=== PATIENT | male | born 2000 | race Two or more races ===

== ENCOUNTER 2024-12-23 18:36 | Emergency (ER) | payer OTHER ==
[~2024-12-23] VITALS: Ht 182.9 cm; Wt 86.4 kg
--- NOTE | 2024-12-23 19:32 | ED.PDOC ---
Back pain HPI HPI Comments Poor Historian. Pt stated that he was at work getting out of a van when he twisted his left ankle at 1400 today. An on sight doctor wrapped the ankle up and informed the pt to do the ice treatment, as well as giving the pt 2 200mg of ibuprofen for the pain. Pt reports a 08/04 pain Patient denies any other injuries or pain. PMHx: Denies any PSHx: Denies any REVIEW OF SYSTEMS: CONSTITUTIONAL: Denies acute: fever, diaphoresis, chills, generalized weakness. HEAD: Denies acute: headache, photophobia Eyes: Denies acute: Double vision, vision loss, eye pain, eye discharge. EARS: Denies acute: tinnitus, hearing loss, ear discharge, ear pain, THROAT: Denies acute: sore throat, swelling, difficulty swallowing , pain with swallowing, change in voice. NECK: Denies acute: neck pain, neck swelling, stiff neck. HEART: Denies acute : chest pain, palpitations, LUNGS: Denies acute: SOB, wheezing, cough, hemoptysis ABDOMEN: Denies acute: abdominal pain, Nausea, Vomiting, diarrhea, melena , hematemesis, hematochezia SKIN: Denies acute: rash, redness, lesions, itchiness. EXTREMITIES: Denies acute: calf pain, numbness, tingling, weakness, Denies acute: Low back pain. Neuro: Denies acute: focal neurological deficit, motor or sensory focal neurological deficit, tremors, seizure like activity, confusion, dizziness, change in mental status, loss of bowel or bladder function, cauda equina like symptoms. : Denies acute: dysuria, hematuria, flank pain, increase in urinary frequency. PSYCH: Denies acute: hallucination, suicidal ideation, homicidal ideation. PHYSICAL EXAM: General: no acute distress, awake and alert. Head: normocephalic, atraumatic. Neck: supple, trachea is midline, no swelling. Throat: Normal phonation. Eyes:, no erythema, no purulent discharge, no proptosis, no icterus. Heart: regular rate, regular rhythm, no significant murmur appreciated. Lungs: no apparent respiratory distress, Able to speak in full sentences. No wheezing, no rhonchi, no crackles. No stridors Clear to auscultation bilaterally. Abdomen: non tender to palpation, non distended, soft, no guarding, no rebound, + bowel sounds. Neuro: Awake, Alert, oriented to name, self, situation, follows commands GCS=15. Speech is normal. Skin: no petechia, no purpura, no cyanosis, non-pale, not jaundice. Lower extremities: --no - Pitting edema no deformity, no calf TTP. Evaluation of the left ankle where his area of pain is: Noted left lateral malleoli swelling and tenderness to palpation. Patient is neurovascularly intact in the affected extremity. Pedal pulses palpable. Sensory and motor are present. Makes eye contact. moves all four extremities. Face: no apparent facial droop. ED COURSE: Chief Complaint: Lower Extremity Time Seen by MD: 19:25 Reviewed Notes: Nurses Notes, Medications, Allergies Allergies: Coded Allergies: NO KNOWN ALLERGIES (Unverified , 12/23/24) Information Source: Patient Mode of Arrival: Wheelchair Timing: Hours Duration: Since onset, Hours Radiates to: Lateral: (L) Foot Severity: Moderate Prehospital treatment: None Quality: Aching Onset: Spontaneous, Bending Circumstance: Other (getting out of a vehicle) Associated signs and symptoms: Weakness:(L) Foot Past Medical History PAST MEDICAL HISTORY: Denies Surgical History: Denies all surgeries Family History Family History: Reviewed,noncontributory to illness, Unknown Social History Smoker: Non-Smoker Alcohol: Denies ETOH Use Drugs: Denies Drug Use Lives In: Home Was a procedure done? Was a procedure done?: No Back Pain Differential Dx Differential Diagnosis: Musculoskeletal Pain Other Differential Diagnosis Dislocation, fracture, sprain, strain, septic joint, compartment syndrome, neurovascular injury. X-Ray, Labs, Meds, VS Vital Signs Date Time Temp Pulse Resp B/P (MAP) Pulse Ox O2 Delivery O2 Flow Rate FiO2 12/23/24 22:40 98.6 69 18 136/73 (94) 97 98.6 12/23/24 22:40 69 18 97 Room Air* 0 21 12/23/24 19:25 99.0 85 18 143/59 (87) 98 Current Medications Medications (Trade) Dose Ordered Sig/Flor Route Start Time Stop Time Status Last Admin Acetaminophen/ Hydrocodone Bitart ([place] 5/325MG Tab) 1 tab ONCE ONCE PO 12/23/24 19:30 12/23/24 19:31 DC 12/23/24 22:[address] [address] Ph: [phone] DIAGNOSTIC IMAGING Diagnostic Imaging Report : [id number] Signed PATIENT: JESSICA GODFREY ACCT: [id number] UNIT: [id number] : 2000 LOC: ER ROOM / BED: / AGE / SEX: 24 / M ADM STATUS: REG ER SERVICE 24 ORDERING PHYSICIAN: FLAVIA MOSER DO PROCEDURE(s): LANKL - L ANKLE 3 VIEW REASON: pain injury swelling ORDER NUMBER(s): [id number], ACCESSION NUMBER(s): [id number] CLINICAL INDICATION: pain injury swelling TECHNIQUE: 3 radiographic views of the left ankle were obtained. Comparison: None FINDINGS/IMPRESSION: There is no evidence of acute fracture or dislocation. The visualized joint space is well maintained. The alignment is anatomical. There is no radiopaque foreign body. HS:Y ATED BY: THIAGO SPANN Jr., DO DICTATED DATE/TIME: 12/23/242017 SIGNED BY: THIAGO SPANN Jr., DO SIGNED DATE/TIME: 12/23/242017 CC: Time of 1ST Reevaluation: 19:55 Reevaluation 1ST: Unchanged Patient Education/Counseling: Diagnosis, Treatment Family Education/Counseling: No Family Present Comments Patient presented with the above HPI.----ankle injury--workup was initiated. patient was found with the above mentioned diagnosis. the following medications were ordered: please refer to order lists of meds and tests obtained by myself Dr. Moser. Patient ED course and VS have been stabilized. Patient has been reassessed in the ED and remained in a stable condition. Pertinent incidental findings were discussed with the patient and/or family. Patient/family voices understanding and is agreeable with plan. Patient has been observed in the ED adequate length of time to insure improvement/stability. Escalation of care considered: Consideration of escalation to observation or admission Splint was ordered for the patient. This is worker's compensation case. Patient was DISCHARGED home in a stable condition. All the reports of any imaging studies that were ordered by myself were reviewed by myself. Departure 1 Departure Time of Disposition: 20:53 Impression: Primary Impression: Left ankle sprain Disposition: HOME / SELF CARE / HOMELESS Condition: Stable Additional Instructions: Additional discharge instructions: You MUST follow-up with your primary care/family doctor in 1 to 2 days. If you are unable to see your primary care/family doctor, please return to our emergency room for re-assessment and re-evaluation in 1 to 2 days. Return to the emergency room here in our facility or to the nearest ER [facility] if your symptoms change or worsen. CONSULTATIONS: you MUST Follow-up for consultation as soon as possible with: orthopedic doctor in 1-2 days. Please call for appointment. Follow up with worker's compensation. You MUST call the consultants office yourself to make an appointment. You may need to arrange that through your insurance and/or your primary/family doctor. If you are unable to see the data consultant in 1 to 2 days, you must return to our emergency room (or any other ER of your choice) for re-assessment and re- evaluation. Adequate fluid hydration. Below is a copy of your radiological report for follow up: [place] [address] Ph: [phone] DIAGNOSTIC IMAGING Diagnostic Imaging Report : [id number] Signed PATIENT: JESSICA GODFREY ACCT: [id number] UNIT: [id number] : 2000 LOC: ER ROOM / BED: / AGE / SEX: 24 / M ADM STATUS: REG ER SERVICE 24 ORDERING PHYSICIAN: FLAVIA MOSER DO PROCEDURE(s): LANKL - L ANKLE 3 VIEW REASON: pain injury swelling ORDER NUMBER(s): [id number], ACCESSION NUMBER(s): [id number] CLINICAL INDICATION: pain injury swelling TECHNIQUE: 3 radiographic views of the left ankle were obtained. Comparison: None FINDINGS/IMPRESSION: There is no evidence of acute fracture or dislocation. The visualized joint space is well maintained. The alignment is anatomical. There is no radiopaque foreign body. HS:Y ATED BY: THIAGO SPANN Jr., DO DICTATED DATE/TIME: 12/23/242017 SIGNED BY: THIAGO SPANN Jr., SIGNED DATE/TIME: 12/23/242017 CC: Discharged With: Self Critical Care Note Critical Care Time?: No I personally scribed for FLAVIA MOSER DO ([email or web address]) on 12/23/24 at 19:32. Electronically submitted by Nish Carter ([email or web address]). I personally scribed for FLAVIA MOSER DO ([email or web address]) on 12/23/24 at 19:35. Electronically submitted by Nish Carter ([email or web address]). I personally scribed for FLAVIA MOSER DO ([email or web address]) on 12/23/24 at 20:56. Electronically submitted by Nish Carter ([email or web address]). FLAVIA MOSER DO Dec 23, 2024 19:32
--- NOTE | 2024-12-23 20:21 | DVH ---
CLINICAL INDICATION: pain injury swelling TECHNIQUE: 3 radiographic views of the left ankle were obtained. Comparison: None FINDINGS/IMPRESSION: There is no evidence of acute fracture or dislocation. The visualized joint space is well maintained. The alignment is anatomical. There is no radiopaque foreign body. HS:Y
[2024-12-23 22:40] VITALS: BP 136/73; PULSE 69; RESP 18; TEMP 98.6; O2SAT 97
[2024-12-23] MEDS: HYDROcodone-ACET 5/325MG TAB PO ONE (22:42)
== END 2024-12-23 23:20 | disposition home or self-care (01) ==
LOC: ER 18:36
DX: S93.402A Sprain of unspecified ligament of left ankle, initial encounter (principal); X50.1XXA Overexertion from prolonged static or awkward postures, initial encounter; Y93.89 Activity, other specified; Y92.89 Other specified places as the place of occurrence of the external cause; Y99.8 Other external cause status
CPT/HCPCS: 29515; 73610